=== PATIENT | male | born 1995 | race Caucasian/White ===

== ENCOUNTER 2019-12-22 08:26 | Emergency (ER) | payer BC ==
--- NOTE | 2019-12-22 09:01 | RAD ---
LEFT RIB SERIES INDICATION: 24-year-old male with left-sided rib injury COMPARISON: None. FINDINGS: Visualized Left Chest: Visualized left lung is clear. No pneumothorax. Left Ribs: No displaced left-sided rib fracture is demonstrated. IMPRESSION: No displaced left-sided rib fracture
== END 2019-12-22 09:58 | disposition home or self-care (01) ==
LOC: ERS 08:26
DX: S20.212A Contusion of left front wall of thorax, initial encounter (principal); F17.220 Nicotine dependence, chewing tobacco, uncomplicated; W19.XXXA Unspecified fall, initial encounter